=== PATIENT | female | born 1965 | race Caucasian/White ===

== ENCOUNTER 2024-08-31 08:05 | Observation (INO) | payer OTHER, SELFPAY ==
[2024-08-31 08:09] VITALS: BP 98/71; PULSE 110; TEMP 36.6; O2SAT 98; BMI 33.1
--- NOTE | 2024-08-31 08:42 | CT_ITS ---
The [address] [address] Patient Name: BETZY HOOKS MRN: [id number] date: 1965 Sex: F Assigned Patient Location: ER Current Patient Location: .[facility] Accession/Order Number: [id number] Exam Date: 08/31/2024 09:27 Report Date: 08/31/2024 09:41 At the request of: MELA TROTTER DO Procedure: CT abdomen pelvis wo con CT ABDOMEN AND PELVIS WITHOUT CONTRAST CLINICAL DATA: Left lower quadrant and flank pain with vomiting, diarrhea and hematuria. History of kidney stones. COMPARISON: 05/04/2020 Spiral images were obtained through the abdomen and pelvis without contrast. This CT exam was performed using one or more following dose reduction techniques: Automated exposure control, adjustment of the mA and/or kV according to patient size, or use of iterative reconstruction technique. Limited cuts through the lung bases show minimal atelectasis or scarring. Evaluation of the intra-abdominal organs is slightly limited by the absence of contrast. There is fatty infiltration of the liver. No calcified gallstones are identified. The spleen, pancreas and adrenal glands show no acute findings. There are multiple punctate renal stones, greater on the left. There are renal hypodensities suggesting possible cysts. The largest is at the upper pole on the right measuring 3.6 cm. No hydronephrosis is identified. No ureteral dilatation or stones are seen. There is atherosclerotic plaque at the abdominal aortic and iliac arteries. There are small lymph nodes. No ascites is identified. No small bowel dilatation is seen. There is a small amount of stool within the ascending colon. The transverse and descending colon are decompressed. Mild degenerative changes are visualized at the spine. Images through the pelvis show normal caliber small bowel loops. There is no appendiceal inflammation. The remainder of the colon is decompressed. There are a few descending and sigmoid diverticula. No active inflammation is seen. The uterus is surgically absent. The urinary bladder is poorly distended for evaluation however no obvious bladder stones are identified. There is no ascites. CT/CT abdomen pelvis wo con IMPRESSION: FATTY LIVER. SUSPECTED BILATERAL RENAL CYSTS. BILATERAL NEPHROLITHIASIS, WITHOUT EVIDENCE OF OBSTRUCTION. MINOR DIVERTICULOSIS. UNDER DISTENDED URINARY BLADDER, LIMITING EVALUATION. Impression dictated by: Ktay Johnson M.D.08/31/2024 9:41 AM Dictation Location: [place] [address] Electronically authenticated by: [id number] Y Date: 08/31/2024 09:41
[2024-08-31] MEDS: KETOROLAC TROMETHAMINE 30 MG/ML VIAL 15 MG IVP (08:52)
[2024-08-31] MEDS: 0.9 % SODIUM CHLORIDE 1,000 ML 1000 ML IV (08:52)
[2024-08-31] MEDS: ONDANSETRON PF 4 MG/2 ML VIAL IV ×2 (08:53→15:49)
[2024-08-31 08:59] LABS: Hematocrit 40.4 % (36.0-48.0); Hemoglobin 12.9 g/dL (12.0-16.0); Mean Corpuscular HGB Conc 31.9 g/dL (29.9-35.2); Mean Corpuscular Hemoglobin 27.4 pg (26.7-34.0); Mean Corpuscular Volume 85.8 fL (81.0-99.0); Mean Platelet Volume 10.3 fL (9.5-13.5); Platelet Count 200 10^3/uL (150-450); Red Blood Count 4.71 10^6/uL (4.20-5.40); Red Cell Distribution Width 15.5 % (11.0-15.0)
--- NOTE | 2024-08-31 09:11 | ED.GENADUL1 ---
HPI HPI - General Adult General Chief complaint: Nausea/Vomiting/Diarrhea Stated complaint: BLOOD IN URINE VOMITTING Time Seen by Provider: 08/31/24 08:08 Source: patient and family Mode of arrival: walk-in Limitations: no limitations History of Present Illness HPI narrative: Patient presents to ED complaining of not feeling well. Patient states she started feeling bad yesterday morning. She went to urgent care and they told her she needed to go to the emergency room. She went over to [facility] ER and waited in the waiting room for 2 and half hours so she left. She came in this morning because she started urinating blood. She said yesterday she had some nausea vomiting chills and fevers. She does have a history of urinary tract infections and kidney stones in the past. No history of diverticulitis. She denies any blood in the stool but does complain of urinating blood this morning. She said she has been unable to keep even water down. She is alert and oriented answering questions appropriately mildly tachycardic mildly hypotensive. No fever here. She said she has some left lower abdominal pain no acute flank pain. No other complaints at this time Related Data Home Medications ?Medication ?Instructions ?Recorded ?Confirmed betamethasone dipropionate 0.05 % 1 applic topical Q12H PRN itching 08/31/24 08/31/24 topical cream ibuprofen 800 mg tablet 800 mg PO Q8H PRN fever or pain 08/31/24 08/31/24 Allergies Allergy/AdvReac Type Severity Reaction Status Date / Time No Known Drug Allergies Allergy Verified 08/31/24 08:09 Opioid HPI Opioid Management Most Recent Opioid Data: Last Pain Scale 2 08/31/24 08:52 08/31/24 Last AUG Pain Assessment 08/31/24 08:52 Review of Systems ROS Status of ROS 10 or more systems reviewed and unremarkable except as noted in history and below PFSH PFSH Social History Little interest or pleasure in doing things: not at all Feeling down, depressed, or hopeless: not at all Exam Narrative Exam Narrative: Time Seen: [] Vital Signs: [Per nurse's notes.] General: [Alert] Skin: [Warm, dry, no rash.] Head: [Normocephalic, atraumatic.] Neck: [Supple, trachea midline.] Eye: [Pupils are equal, round and reactive to light, extraocular movements are intact, normal conjunctiva.] Ears, nose, mouth and throat: oral mucosa moist. Cardiovascular: [Regular rate and rhythm, no murmur.] Respiratory: [Lungs are clear to auscultation, respirations are non-labored, breath sounds are equal.] Chest wall: [No tenderness, no deformity.] Gastrointestinal: [Soft, left lower quadrant pain mild, non distended, normal bowel sounds.] MSK: 5 out of 5 muscle strength x 4 extremities no calf pain or edema Lymphatics: [No lymphadenopathy.] Psychiatric: [Cooperative, appropriate mood & affect.] Neurological: [Alert and oriented to person, place, time, and situation, no focal neurological deficit observed.] Constitutional Vital Signs, click to edit/add: Last Vital Signs Temp 98 F 08/31/24 08:09 Pulse 110 H 08/31/24 08:09 Resp 18 08/31/24 08:09 BP 98/71 08/31/24 08:09 Pulse Ox 98 08/31/24 08:09 O2 Del Method Room Air 08/31/24 08:09 Course Vital Signs Vital signs: Vital Signs Temperature 98 F 08/31/24 08:09 Pulse Rate 110 H 08/31/24 08:09 Respiratory Rate 18 08/31/24 08:09 Blood Pressure 98/71 08/31/24 08:09 Pulse Oximetry 98 08/31/24 08:09 Oxygen Delivery Method Room Air 08/31/24 08:09 Temperature 98 F 08/31/24 08:09 Pulse Rate 110 H 08/31/24 08:09 Respiratory Rate 18 08/31/24 08:09 Blood Pressure 98/71 08/31/24 08:09 Pulse Oximetry 98 08/31/24 08:09 Oxygen Delivery Method Room Air 08/31/24 08:09 Medical Decision Making MDM Narrative Medical decision making narrative: Patient's labs show an elevated white blood cell count of 33.8. Blood cultures and lactate added on. Lactate elevated at 3.1 signifying sepsis. UA shows infection. CT scan shows no obstructing kidney stone or other source of infection. Flu and COVID are negative. 30 mL/kg of LR ordered for sepsis coverage. IV Zosyn ordered for sepsis. Patient will be admitted to the hospital for IV fluids and IV antibiotics for the urinary tract infection. I spoke to Dr. Presley who will admit the patient for further care. Patient is comfortable with care plan for admission to hospital. Differential Diagnosis Differential Diagnosis: Flu COVID UTI kidney stones sepsis diverticulitis Lab Data Lab results reviewed: Yes I reviewed the patient's lab results Labs: Lab Results 08/31/24 08/31/24 08/31/24 Range/Units 08:50 08:51 10:05 WBC 33.8 H* (4.0-11.0) 10^3/uL RBC 4.71 (4.20-5.40) 10^6/uL Hgb 12.9 (12.0-16.0) g/dL Hct 40.4 (36.0-48.0) % MCV 85.8 (81.0-99.0) fL MCH 27.4 (26.7-34.0) pg MCHC 31.9 (29.9-35.2) g/dL RDW 15.5 H (11.0-15.0) % Plt Count 200 (150-450) 10^3/uL MPV 10.3 (9.5-13.5) fL Seg Neuts % (Manual) 84.0 H (43.0-75.0) Band Neutrophils % 10.0 H (0-5) % Lymphocytes % (Manual) 3.0 L (20.5-60.0) % Monocytes % (Manual) 1.0 L (1.7-12.0) % Eosinophils % (Manual) 0.0 L (0.9-7.0) % Basophils % (Manual) 0.0 L (0.2-2.0) % Metamyelocytes % 2.0 Neutrophils # (Manual) 28.39 H (1.4-6.5) 10^3/uL Band Neutrophils # 3.4 H (0.0-0.3) 10^3/uL Lymphocytes # (Manual) 1.01 L (1.20-3.80) 10^3/uL Monocytes # (Manual) 0.33 (0.30-0.80) 10^3/uL Eosinophils # (Manual) 0.00 (0.00-0.70) 10^3/uL Basophils # (Manual) 0.00 (0.00-0.10) 10^3/uL Metamyelocytes # 0.67 Toxic Granulation 1+ Toxic Vacuolation 1+ Sodium 143 (136-145) mmol/L Potassium 3.7 (3.5-5.1) mmol/L Chloride 105 (98-107) mmol/L Carbon Dioxide 24.9 (21.0-32.0) mmol/L Anion Gap 16.8 BUN 30.0 H (7.0-18.0) mg/dL Creatinine 1.89 H (0.55-1.02) mg/dL Est GFR ( Amer) 33 L (>=60 mL/min/1.73m^2) Est GFR (Non-Af Amer) 27 L (>=60 mL/min/1.73m^2) BUN/Creatinine Ratio 15.9 Glucose 136 H (74-106) mg/dL Lactate 3.1 H* (0.4-2.0) mmol/L Calcium 8.6 (8.5-10.1) mg/dL Total Bilirubin 0.7 (0.2-1.0) mg/dL AST 29 (15-37) U/L ALT 34 (14-59) U/L Alkaline Phosphatase 107 (46-116) U/L Total Protein 7.0 (6.4-8.2) g/dL Albumin 3.1 L (3.4-5.0) g/dL Globulin 3.9 g/dL Albumin/Globulin Ratio 0.8 Urine Color Yellow (YELLOW) Urine Clarity Clear (CLEAR) Urine pH 5.0 (5.0-9.0) Ur Specific [place] 1.025 (1.005-1.025) Urine Protein >=300 A (NEG/TRACE) mg/dL Urine Glucose (UA) Negative (NEGATIVE) mg/dL Urine Ketones Trace A (NEGATIVE) mg/dL Urine Occult Blood Large A (NEGATIVE) Urine Nitrite Positive A (NEGATIVE) Urine Bilirubin Moderate A (NEGATIVE) Urine Urobilinogen 1.0 (0.2-1.0) EU/dL Ur Leukocyte Esterase Large A (NEGATIVE) Urine RBC 75-100 A (0-2) #/HPF Urine WBC 75-100 A (NONE SEEN) #/HPF Ur Squamous Epith Cells Few A (NONE/RARE) #/LPF Urine Crystals Seen A (None Seen) #/HPF Amorphous Sediment Few Urine Bacteria Moderate A (NONE SEEN) #/HPF Urine Casts None seen (NONE SEEN) #/LPF Urine Mucus None seen (NONE SEEN) Ur Culture Indicated? Yes-[facility] [place] Influenza Type A Ag Negative Influenza Type B Ag Negative SARS-CoV-2 Ag (CV2AG) Negative (NEGATIVE) Imaging Data CT scan - abdomen: Radiologist's impression: ITS Impressions Abdomen/Pelvis CT 08/31/24 08:42 IMPRESSION: FATTY LIVER. SUSPECTED BILATERAL RENAL CYSTS. BILATERAL NEPHROLITHIASIS, WITHOUT EVIDENCE OF OBSTRUCTION. MINOR DIVERTICULOSIS. UNDER DISTENDED URINARY BLADDER, LIMITING EVALUATION. Impression dictated by: Katy Johnson M.D.08/31/2024 9:41 AM Dictation Location: [place] [address] Electronically authenticated by: [id number] Y Date: 08/31/2024 09:41 Discharge Plan Discharge Chief Complaint: Nausea/Vomiting/Diarrhea Time of Disposition Decision: 10:31 Prescriptions / Home Meds: No Action ibuprofen 800 mg tablet 800 mg PO Q8H PRN (Reason: fever or pain) betamethasone dipropionate 0.05 % cream 1 applic TOPICAL Q12H PRN (Reason: itching) Print Language: Swedish
[2024-08-31 09:16] LABS: Influenza Virus A Antigen Negative; Influenza Virus B Antigen Negative; Internal Control Within Normal Limits; SARS-CoV-2 Ag NEGATIVE (NEGATIVE)
[2024-08-31 09:18] LABS: Alanine Aminotransferase 34 U/L (14-59); Albumin Globulin Ratio 0.8; Albumin Level 3.1 g/dL (3.4-5.0); Alkaline Phosphatase 107 U/L (46-116); Anion Gap 16.8; Aspartate Amino Transferase 29 U/L (15-37); BUN Creatinine Ratio 15.9; Bilirubin Total 0.7 mg/dL (0.2-1.0); Calcium 8.6 mg/dL (8.5-10.1); Carbon Dioxide 24.9 mmol/L (21.0-32.0); Chloride 105 mmol/L (98-107); Estimated GFR (African America 33 (>=60 mL/min/1.73m^2); Estimated GFR (Non-African Ame 27 (>=60 mL/min/1.73m^2); Globulin 3.9 g/dL; Glucose 136 mg/dL (74-106); Potassium 3.7 mmol/L (3.5-5.1); Sodium 143 mmol/L (136-145)
[2024-08-31 09:24] LABS: White Blood Count 33.8 10^3/uL (4.0-11.0)
[2024-08-31 09:25] LABS: Band Neutrophils Absolute 3.4 10^3/uL (0.0-0.3); Lymphocytes Absolute Manual 1.01 10^3/uL (1.20-3.80); Monocytes Absolute Manual 0.33 10^3/uL (0.30-0.80); Segmented Neut Absolute Manual 28.39 10^3/uL (1.4-6.5)
[2024-08-31 09:26] LABS: Metamyelocytes Absolute Manual 0.67; Toxic Vacuolation 1+
[2024-08-31 09:27] LABS: Toxic Granulation 1+
[2024-08-31 09:51] LABS: Lactate/Lactic Acid 3.1 mmol/L (0.4-2.0)
[2024-08-31] MEDS: LACTATED RINGER S 570 ML IV (10:06)
[2024-08-31 10:14] LABS: Bilirubin Urine MODERATE (NEGATIVE); Blood Urine LARGE (NEGATIVE); Clarity Urine CLEAR (CLEAR); Color Urine YELLOW (YELLOW); Glucose Urine UA NEGATIVE (NEGATIVE); Ketones Urine TRACE mg/dL (NEGATIVE); Leukocyte Esterase Urine LARGE (NEGATIVE); Nitrite Urine POSITIVE (NEGATIVE); Protein Urine >=300 mg/dL (NEG/TRACE); Specific Gravity Urine 1.025 (1.005-1.025)
[2024-08-31 10:16] LABS: Urine Microscopic Indicated YES
[2024-08-31 10:26] LABS: Bacteria Urine MODERATE #/HPF (NONE SEEN); Crystals Seen? Seen #/HPF (None Seen); Mucus Urine NONE SEEN (NONE SEEN); RBC Urine 75-100 #/HPF (0-2); Squamous Epithelial Cell Urine FEW #/LPF (NONE/RARE); WBC Urine 75-100 #/HPF (NONE SEEN)
[2024-08-31 10:27] LABS: Amorphous Sediment Urine FEW; Cast Seen? NONE SEEN #/LPF (NONE SEEN); Urine Culture Indicated YES-FRMC
[2024-08-31 10:40] VITALS: BP 111/74; PULSE 84; O2SAT 100
[2024-08-31] MEDS: PIPERACILLIN SODIUM/TAZOBACTAM 3.375 GM in 0.9 % SODIUM CHLORIDE 50 ML IV (10:53)
[2024-08-31 11:00] VITALS: BP 111/74; PULSE 100; TEMP 36.8; O2SAT 95; BMI 35.4
--- NOTE | 2024-08-31 11:39 | P.HP_ITS ---
HPI H&P: HPI History of Present Illness Chief complaint: BLOOD IN URINE VOMITTING, UROSEPSIS Narrative: 59 y/o female to ER with blood in urine. Didn't feel well last week but no specific symptoms. Yesterday woke up with abdominal discomfort and nausea. Severe fatigue and took a nap during day. Developed severe nausea and emesis. To urgent care and told go to ER. Waited 2 1/2 hours then left without being seen. Once home nausea and vomiting worsened. Not able to keep down water and didn't eat much all day. Developed diarrhea. This am noted blood in urine and to ER. Patient with low BP and tachycardia. WBC elevated at 33 and lactate elevated. BUN/creatinine elevated due to dehydration and UA showed UTI. Admitted for treatment. Opioid HPI Opioid Management Most Recent Pain and Opioid Data: Last Pain Scale 2 08/31/24 08:52 08/31/24 Last Pain Assessment 08/31/24 11:00 Last MAR Pain Assessment 08/31/24 08:52 Last ORT Total Score 0 08/31/24 11:00 08/31/24 Last ORT Risk Category Low Risk 08/31/24 11:00 08/31/24 Review of Systems ROS Constitutional Denies: fever, chills or fatigue Respiratory Denies: shortness of breath, cough or wheezing Gastrointestinal Reports: nausea, vomiting and diarrhea; Denies: abdominal pain Genitourinary Denies: painful urination [facility] Medical History (Updated 08/31/24 @ 11:41 by Denis Hennessy MD) Nonalcoholic fatty liver ?K76.0 - Fatty (change of) liver, not elsewhere classified (ICD-10) Sepsis ?A41.9 - Sepsis, unspecified organism (ICD-10) Neurofibromatosis ?Q85.00 - Neurofibromatosis, unspecified (ICD-10) Kidney calculi ?N20.0 - Calculus of kidney (ICD-10) Social History Little interest or pleasure in doing things: not at all Feeling down, depressed, or hopeless: not at all Meds Home Medications and Allergies Home Medications ?Medication ?Instructions ?Recorded ?Confirmed ?Type betamethasone dipropionate 0.05 % 1 applic topical Q12H PRN itching 08/31/24 08/31/24 History topical cream ibuprofen 800 mg tablet 800 mg PO Q8H PRN fever or pain 08/31/24 08/31/24 History Allergies Allergy/AdvReac Type Severity Reaction Status Date / Time No Known Drug Allergies Allergy Verified 08/31/24 08:09 Exam Constitutional Vital Signs, click to edit/add: Last Vital Signs Temp 98.3 F 08/31/24 11:00 Pulse 100 H 08/31/24 11:00 Resp 16 08/31/24 11:00 BP 111/74 08/31/24 11:00 Pulse Ox 95 08/31/24 11:00 O2 Del Method Room Air 08/31/24 11:00 Documenting provider has reviewed patient's vital signs: yes Common normals: no apparent distress, oriented x3 and alert HENMT Common normals: normocephalic Eye Common normals: PERRL and EOMs intact bilaterally Respiratory Common normals: normal respiratory effort and clear to auscultation bilaterally Cardio Common normals: regular rate, regular rhythm, no gallops, no murmurs and no rub GI Common normals: Normal to inspection, nondistended, normoactive bowel sounds present and non-tender Extremity Common normals: no pedal edema Results Labs Labs: Short CBC 08/31/24 Range/Units 08:51 WBC 33.8 H* (4.0-11.0) 10^3/uL Hgb 12.9 (12.0-16.0) g/dL Hct 40.4 (36.0-48.0) % Plt Count 200 (150-450) 10^3/uL BMP 08/31/24 08:51 Sodium 143 Potassium 3.7 Chloride 105 Carbon Dioxide 24.9 BUN 30.0 H Creatinine 1.89 H Glucose 136 H Calcium 8.6 Liver Function 08/31/24 Range/Units 08:51 Total Bilirubin 0.7 (0.2-1.0) mg/dL AST 29 (15-37) U/L ALT 34 (14-59) U/L Alkaline Phosphatase 107 (46-116) U/L Albumin 3.1 L (3.4-5.0) g/dL Urine 08/31/24 Range/Units 10:05 Urine Color Yellow (YELLOW) Urine Clarity Clear (CLEAR) Urine pH 5.0 (5.0-9.0) Ur Specific [place] 1.025 (1.005-1.025) Urine Protein >=300 A (NEG/TRACE) mg/dL Urine Glucose (UA) Negative (NEGATIVE) mg/dL Assessment and Plan Assessment and Plan (1) UTI (urinary tract infection): (2) Suspected sepsis: (3) Acute kidney injury: (4) Dehydration: Plan Sepsis suspected due to elevated WBC, tachycardia, and low BP with UTI as source of infection. ER gave 30 mL/Kg fluid bolus. Possible lab abnormalities and vitals due to dehydration and emesis. Start levaquin and rocephin for UTI. Continue IV fluids. Give tylenol and zofran PRN for symptoms. Repeat lactate. Likely home in am if patient improves with treatment.
[2024-08-31] MEDS: 0.9 % SODIUM CHLORIDE 1,000 ML 100 ML IV ×2 (12:11→22:25)
[2024-08-31 12:41] LABS: Lactate/Lactic Acid 2.8 mmol/L (0.4-2.0)
[2024-08-31] MEDS: LEVOFLOXACIN IN DEXTROSE 5 % 750 MG/150 ML PREMIX 100 MG IV (12:58)
[2024-08-31] MEDS: CEFTRIAXONE 1,000 MG in 0.9 % SODIUM CHLORIDE 50 ML 100 MG IV (15:49)
[2024-08-31 16:23] VITALS: BP 110/70; PULSE 98; TEMP 36.6; O2SAT 94
[2024-08-31 19:54] VITALS: BP 109/76; PULSE 102; TEMP 36.7; O2SAT 95
[2024-08-31 23:37] VITALS: BP 94/51; PULSE 105; TEMP 36.9; O2SAT 94
[2024-09-01 05:12] VITALS: BP 123/79; PULSE 106; TEMP 36.7; O2SAT 90
[2024-09-01] MEDS: ACETAMINOPHEN 500 MG TABLET 1000 MG PO (05:28)
[2024-09-01 05:37] LABS: Basophils Percent Auto 0.1 % (0.2-2.0); Hematocrit 34.7 % (36.0-48.0); Hemoglobin 10.9 g/dL (12.0-16.0); Immature Granulocytes Abs Auto 0.38 10^3/uL (0.00-0.03); Immature Granulocytes Pct Auto 1.7 % (0.0-0.5); Lymphocytes Percent Auto 4.3 % (20.5-60.0); Mean Corpuscular HGB Conc 31.4 g/dL (29.9-35.2); Mean Corpuscular Hemoglobin 26.8 pg (26.7-34.0); Mean Corpuscular Volume 85.3 fL (81.0-99.0); Mean Platelet Volume 11.2 fL (9.5-13.5); Monocytes Absolute Auto 1.1 10^3/uL (0.3-0.8); Monocytes Percent Auto 5.1 % (1.7-12.0); Neutrophils Absolute Auto 19.6 10^3/uL (1.4-6.5); Neutrophils Percent Auto 88.8 % (43.0-75.0); Platelet Count 152 10^3/uL (150-450); Red Blood Count 4.07 10^6/uL (4.20-5.40); Red Cell Distribution Width 15.7 % (11.0-15.0); White Blood Count 22.1 10^3/uL (4.0-11.0)
[2024-09-01 05:51] LABS: Alanine Aminotransferase 20 U/L (14-59); Albumin Globulin Ratio 0.7; Albumin Level 2.3 g/dL (3.4-5.0); Alkaline Phosphatase 84 U/L (46-116); Anion Gap 14.6; Aspartate Amino Transferase 20 U/L (15-37); BUN Creatinine Ratio 25.9; Bilirubin Total 0.3 mg/dL (0.2-1.0); Calcium 8.1 mg/dL (8.5-10.1); Carbon Dioxide 23.7 mmol/L (21.0-32.0); Chloride 108 mmol/L (98-107); Estimated GFR (African America >60 (>=60 mL/min/1.73m^2); Estimated GFR (Non-African Ame >60 (>=60 mL/min/1.73m^2); Globulin 3.5 g/dL; Glucose 99 mg/dL (74-106); Potassium 3.3 mmol/L (3.5-5.1); Sodium 143 mmol/L (136-145); Total Protein 5.8 g/dL (6.4-8.2)
[2024-09-01 07:42] VITALS: BP 121/82; PULSE 94; TEMP 36.7; O2SAT 94
--- NOTE | 2024-09-01 07:59 | PC.NURSE ---
Addendum entered by NYDIA Moss 09/01/24 08:06: Documented by Kathya Moss. Not Shirley Austin Original Note: Pt was resting with eyes closed when I entered. Once awake, pt was alert and oriented. Able to tell me about her job. Vitals were stable and wnl. No edema, pedal pulses present. No s/s of distress. No c/o pain or discomfort. No c/o of chest pain or SOB. Will continue plan of care.
--- NOTE | 2024-09-01 08:12 | PC.NURSE ---
Pt seen resting with eyes closed. Once awake, able to tell me about her job. Alert and oriented. No c/o chest pain or SOB. No s/s of distress. Vitals stable and wnl. No edema, pedal pulses palpable. Will continue plan of care.
--- NOTE | 2024-09-01 11:23 | CM.NOTE ---
Rounds made with Dr. Hennessy, discussed with pt reason for admission and lab results. Pt will discharge to home today on P.O. antibiotics and f/u with PCP for final culture results.
--- NOTE | 2024-09-01 11:35 | PM.DS1 ---
DS: Providers Provider Date of admission: 08/31/24 10:55 Primary care physician: Drew Cordova DO DS: Diagnosis Discharge Diagnosis (1) UTI (urinary tract infection): (2) Acute kidney injury: (3) Dehydration: DS: Summary Hospital Course Hospital Course: Reason for admission: See H&P for details. 59 y/o female to ER with blood in urine. Didn't feel well last week but no specific symptoms. Yesterday woke up with abdominal discomfort and nausea. Severe fatigue and took a nap during day. Developed severe nausea and emesis. To urgent care and told go to ER. Waited 2 1/2 hours then left without being seen. Once home nausea and vomiting worsened. Not able to keep down water and didn't eat much all day. Developed diarrhea. Noted blood in urine and to ER. Patient with low BP and tachycardia. WBC elevated at 33 and lactate elevated. BUN/creatinine elevated due to dehydration and UA showed UTI. Admitted for treatment. Hospital course: Initially suspected sepsis but ruled out in hospital. Continued IV fluids and labs improved. WBC improved. Afebrile. Normal appetite and no emesis or diarrhea. Ambulating well. Discharged home in stable condition. Will treat with cefdinir and levaquin while awaiting urine culture. Increased fluids. Follow up with PCP in 1-2 weeks. Time Spent with Patient Time attestation: Total time spent providing and/or coordinating discharge services: Time spent: greater than 30 minutes Exam Constitutional Vital Signs, click to edit/add: Last Vital Signs Temp 98.1 F 09/01/24 07:42 Pulse 94 H 09/01/24 07:42 Resp 16 09/01/24 07:42 BP 121/82 09/01/24 07:42 Pulse Ox 94 L 09/01/24 07:42 O2 Del Method Room Air 09/01/24 07:42 Documenting provider has reviewed patient's vital signs: yes Common normals: no apparent distress, oriented x3 and alert HENMT Common normals: normocephalic Eye Common normals: PERRL and EOMs intact bilaterally Respiratory Common normals: normal respiratory effort and clear to auscultation bilaterally Cardio Common normals: regular rate, regular rhythm, no gallops, no murmurs and no rub GI Common normals: Normal to inspection, nondistended, normoactive bowel sounds present and non-tender Extremity Common normals: no pedal edema DS: Data Data Completed and Pending Labs on day of discharge: Labs from last 24 hours 09/01/24 08/31/24 05:12 11:52 WBC 22.1 H RBC 4.07 L Hgb 10.9 L Hct 34.7 L MCV 85.3 MCH 26.8 MCHC 31.4 RDW 15.7 H Plt Count 152 MPV 11.2 Neut % (Auto) 88.8 H Lymph % (Auto) 4.3 L [place] % (Auto) 5.1 Eos % (Auto) 0.0 L Baso % (Auto) 0.1 L Neut # (Auto) 19.6 H Lymph # (Auto) 1.0 L [place] # (Auto) 1.1 H Eos # (Auto) 0.0 Baso # (Auto) 0.0 Abs Immat Gran (auto) 0.38 H Imm/Tot Granulo (auto) 1.7 H Sodium 143 Potassium 3.3 L Chloride 108 H Carbon Dioxide 23.7 Anion Gap 14.6 BUN 21.0 H Creatinine 0.81 Est GFR ( Amer) >60 Est GFR (Non-Af Amer) >60 BUN/Creatinine Ratio 25.9 Glucose 99 Lactate 2.8 H* Calcium 8.1 L Total Bilirubin 0.3 AST 20 ALT 20 Alkaline Phosphatase 84 Total Protein 5.8 L Albumin 2.3 L Globulin 3.5 Albumin/Globulin Ratio 0.7 Preliminary micro results at discharge 08/31/24 10:05 Urine Culture - Preliminary Urine,Clean Catch Pending - [facility] Discharge Plan Discharge Disposition: Home, Self-Care Condition: Fair Discharge Medications: New levofloxacin 750 mg tablet 750 mg PO DAILY 7 Days Qty: 7 0RF ondansetron 4 mg tablet,disintegrating 4 mg PO Q6H PRN (Reason: nausea and vomiting) Qty: 20 0RF cefdinir 300 mg capsule 300 mg PO BID 10 Days Qty: 20 0RF Continued ibuprofen 800 mg tablet 800 mg PO Q8H PRN (Reason: fever or pain) betamethasone dipropionate 0.05 % cream 1 applic TOPICAL Q12H PRN (Reason: itching) Activity: resume usual activities as tolerated Diet: advance to your usual diet Print Language: Telugu Forms: Portal Instructions Follow Up Appointments: Please call Dr. Drew Cordova to schedule a follow up appt. for 5-7 days following discharge. [phone]
[2024-09-01] MEDS: CEFTRIAXONE 1,000 MG in 0.9 % SODIUM CHLORIDE 50 ML 100 MG IV (11:37)
[2024-09-01] MEDS: LEVOFLOXACIN IN DEXTROSE 5 % 750 MG/150 ML PREMIX 100 MG IV (12:21)
--- NOTE | 2024-09-02 12:04 | CM.NOTE ---
Alli txt sent to Dr. Hennessy final urine culture result- e-coli.
--- NOTE | 2024-09-02 12:19 | CM.NOTE ---
Dr. Hennessy txt back, pt went home on Cefdinir and Levaquin.
--- NOTE | 2024-09-02 12:48 | CM.DCFOLLOWU ---
Person spoke with: Jaquan How are you feeling? Much better How is your pain? No pain Did you understand your discharge instructions? Yes Do you have any questions about your discharge instructions? No Were you given any prescriptions at discharge? Yes Were you able to get your prescriptions filled? Yes Do you understand how to take your medications as ordered? Yes Do you have any questions about your follow up appointment and do you plan to keep your follow up appointment? No I see my doctor next Thursday Is there anything else that you would like to discuss? No Questions/Comments/Concerns/Other:
== END 2024-09-01 14:09 | disposition home or self-care (01) ==
LOC: ER 10:31 → MS 11:53
PROVIDERS: Admitting Provider Family Medicine; Emergency Provider Emergency Medicine; PCP Family Medicine; Visit Provider Family Medicine
DX: N39.0 Urinary tract infection, site not specified (principal); N17.9 Acute kidney failure, unspecified; E86.0 Dehydration; Z87.442 Personal history of urinary calculi
CPT/HCPCS: 36415; 74176; 80053; 81001; 83605; 85007; 85025; 85027; 87040; 87086; 87150; 87186; 87804; 87811; 96361; 96365; 96366; 96367; 96375; 96376; 99285; G0378; J0696; J1885; J2405; J2543